=== PATIENT | male | born 1980 | race Caucasian/White ===

== ENCOUNTER 2024-03-07 12:20 | Outpatient (OUT) | payer MEDICAID, SELFPAY ==
--- NOTE | 2024-03-07 12:33 | MR_ITS ---
[facility] [id number] Patient Name: DANIELLE SOLANO MRN: [id number] date: 1980 Sex: M Assigned Patient Location: MRI Current Patient Location: MRI Accession/Order Number: [id number] Exam Date: 03/07/2024 12:50 Report Date: 03/07/2024 14:47 At the request of: MERLE GIBSON Procedure: MR lumbar spine wo con MR lumbar spine wo con, 03/07/2024 12:50 PM EDT INDICATION: Lumbar spondylosis M47.816 COMPARISON: There is no appropriate prior study for comparison. TECHNIQUE: Multiplanar, multisequential MRI images of lumbar spine were obtained without contrast. FINDINGS: For dictation purposes, the lowest complete disc space in the lumbar spine considered as L5-S1. There is bilateral short pedicles predisposing patients or canal stenosis. Incidental note of a simple cyst versus hemangioma within the right lobe of liver. There is loss of normal physiologic lumbar lordosis. The vertebral height is preserved. The conus medullaris is at the level of L1. No signal abnormality within the visualized spinal cord is noted. No neural foraminal narrowing or canal stenoses at the level of L1-L2 and L2-L3 and L3-L4 is noted. At the level of L4-5, there are disc bulge with central and right lateral disc protrusion with mild bilateral neuroforaminal narrowing and mild canal stenosis. At the level of L5-S1, there are disc bulge with superimposed central protrusion and annular fissure with moderate bilateral neuroforaminal narrowing and no canal stenosis. The paraspinal muscles are unremarkable. MR/MR lumbar spine wo con IMPRESSION: Mild degenerative changes of lumbar spine in particular at L4-L5 and L5-S1. Electronically authenticated by: BEN PIMENTEL Date: 03/07/2024 14:47
== END 2024-03-07 12:21 | disposition home or self-care (01) ==
LOC: MRI 12:24
PROVIDERS: PCP Family Medicine; Visit Provider Family Medicine
DX: M47.816 Spondylosis without myelopathy or radiculopathy, lumbar region (principal); M51.36 Other intervertebral disc degeneration, lumbar region
CPT/HCPCS: 72148